=== PATIENT | male | born 1975 ===

== ENCOUNTER 2021-10-01 17:26 | Inpatient (IN) | payer MEDICAID, SELFPAY ==
[2021-10-01 17:36] VITALS: BP 141/105; PULSE 111; RESP 16; TEMP 36.9; O2SAT 96
--- NOTE | 2021-10-01 18:03 | ED.GENADUL_ITS ---
Discharge Plan Disposition Patient Disposition: STILL A PATIENT Condition: Stable Discharge Details Clinical Impression: Depression Primary Care Provider: Beatrice,Local ED Provider: Arash Gibson [place] Meds and New Rx's Prescriptions: No Action quetiapine 25 mg Tablet 25 mg PO BID PRN0RF cetirizine 10 mg Tablet 10 mg PO DAILY 0RF prazosin 1 mg Capsule 1 mg PO .QHS 0RF mirtazapine 7.5 mg Tablet 7.5 mg PO DAILY 0RF pantoprazole 40 mg Granules For Susp In Packet 40 mg PO DAILY 0RF Medical Decision Making <Nigel Underwood MD - Last Filed: 10/01/21 19:46> 46-year-old male states he was discharged from [facility] today. He states he was discharged by RCT to the economic services office in [facility] where he was told they would be able to help him find a new domicile. He states he was told they had no available options to help him today and this caused him to feel recurrent and worsening depression with thoughts of committing suicide by taking an overdose. The patient is well-appearing, medical screening examination performed. There was a note of elevated heart rate at triage, normal by the time of my exam. Medical screening including laboratory analysis performed, patient medically stable for further evaluation by crisis services. Will sign out to Dr. Gibson pending patient interview by crisis screener. Please see his note regarding final impression and disposition. Lab Data Lab results reviewed: Yes I reviewed the patient's lab results. Labs: Laboratory Results - last 24 hr 10/01/21 10/01/21 10/01/21 18:30 18:30 18:30 WBC 9.75 RBC 4.63 Hgb 14.9 Hct 44.1 MCV 95 MCH 32.2 MCHC 33.8 RDW 12.1 Plt Count 252 MPV 9.8 Immature Gran % 0.4 Neutrophils % 78.9 Lymphocytes % 14.5 Monocytes % 5.4 Eosinophils % 0.3 Basophils % 0.5 Nucleated RBC % 0.0 Absolute Neutrophils 7.69 H Absolute Lymphocytes 1.41 Absolute Monocytes 0.53 Absolute Eosinophils 0.03 Absolute Basophils 0.05 Sodium 143 Potassium 4.1 Chloride 107 Carbon Dioxide 25.8 Anion Gap 10.2 BUN 14 Creatinine 1.1 Estimated GFR/1.73 m2 >= 60.00 Glucose 95 Calcium 9.2 Total Bilirubin 0.2 AST 51 H ALT 78 H Alkaline Phosphatase 90 Total Protein 7.6 Albumin 3.6 TSH 1.13 Salicylates < 2.8 Urine Opiates Screen Urine Methadone Screen Acetaminophen < 2 Ur Barbiturates Screen Ur Tricyclics Screen Ur Amphetamines Screen U Benzodiazepines Scrn Urine Cocaine Screen Ur THC Screen 10/01/21 18:40 WBC RBC Hgb Hct MCV MCH MCHC RDW Plt Count MPV Immature Gran % Neutrophils % Lymphocytes % Monocytes % Eosinophils % Basophils % Nucleated RBC % Absolute Neutrophils Absolute Lymphocytes Absolute Monocytes Absolute Eosinophils Absolute Basophils Sodium Potassium Chloride Carbon Dioxide Anion Gap BUN Creatinine Estimated GFR/1.73 m2 Glucose Calcium Total Bilirubin AST ALT Alkaline Phosphatase Total Protein Albumin TSH Salicylates Urine Opiates Screen Negative Urine Methadone Screen Negative Acetaminophen Ur Barbiturates Screen Negative Ur Tricyclics Screen Negative Ur Amphetamines Screen Negative U Benzodiazepines Scrn Negative Urine Cocaine Screen Negative Ur THC Screen Negative HPI <Nigel Underwood MD - Last Filed: 10/01/21 19:46> General Mode of arrival: ambulatory . Date/Time Provider Initiated Documentation: 10/01/21 17:32 . Limitations to Documentation: no limitations . Information obtained by: patient . History of Present Illness 46 year old M presents to the emergency department with the chief complaint of Depression, discharged from [facility] today, described as moderate, Quality is described as constant, and is localized to the head. Patient started experiencing this week(s) and it has been constant. improves with No relieving factors improve symptom(s), No exacerbating factors reported . Patient notes denies confusion and syncope. Patient did receive the following treatments prior to arrival, none Related Data Home Medications Medication Instructions Recorded Confirmed cetirizine 10 mg tablet 10 mg PO DAILY 10/01/21 10/01/21 mirtazapine 7.5 mg tablet 7.5 mg PO DAILY 10/01/21 10/01/21 pantoprazole 40 mg granules 40 mg PO DAILY 10/01/21 10/01/21 delayed-release for susp in packet prazosin 1 mg capsule 1 mg PO .QHS 10/01/21 10/01/21 quetiapine 25 mg tablet 25 mg PO BID PRN 10/01/21 10/01/21 Allergies Allergy/AdvReac Type Severity Reaction Status Date / Time No Known Allergies Allergy Unverified 10/01/21 17:44 General Stated Complaint: PsychEval BEV: 2 Review of Systems <Nigel Underwood MD - Last Filed: 10/01/21 19:46> Narrative: Feels hopeless, poor sleep, feels depressed, thoughts of harming self by taking overdose. 8 systems reviewed and otherwise negative. PFSH <Nigel Underwood MD - Last Filed: 10/01/21 19:46> All Active Problems (Updated 10/02/21 @ 05:34 by Arash Gibson MD) Depression (Chronic) Social History Smoking/Tobacco Use Status: Never Smoking risk assessment performed?: Yes Substance use type: does not use Exam <Nigel Underwood MD - Last Filed: 10/01/21 19:46> Narrative Exam Narrative: GEN: awake, alert, oriented 3. Pleasant, well groomed, interactive. HEAD: Normocephalic, atraumatic ENT: Mucous membranes moist, oropharynx unremarkable, External ear exam unremarkable EYES: PERRL, EOMI NECK: Full ROM, no KING, no menigismus CHEST/RESP: Nontender, clear to auscultation bilateral, no wheeze/rhonchi/rales CARDIOVASCULAR: RRR, no murmur, rub gigi. 2+ Rad pulse bilateral ABDOMEN: Soft, nontender, no mass. +Bowel sounds EXT: Full ROM, no edema, no rash Neuro: Grossly normal neurologic exam, conversant, interactive. Psych: Speech fluent, thoughts congruent, affect depressed Course <Nigel Underwood MD - Last Filed: 10/01/21 19:46> Vital Signs Vital signs: Vital Signs Temperature 36.9 C 10/01/21 17:36 Pulse 111 H 10/01/21 17:36 Respiratory Rate 16 10/01/21 17:36 Blood Pressure 141/105 H 10/01/21 17:36 Pulse Oximetry 96 10/01/21 17:36 Temperature 36.9 C 10/01/21 17:36 Temperature Source Temporal Artery Scan 10/01/21 17:36 Pulse 111 H 10/01/21 17:36 Respiratory Rate 16 10/01/21 17:36 Respiratory Effort 10/01/21 17:36 Blood Pressure 141/105 H 10/01/21 17:36 Blood Pressure Position Sitting 10/01/21 17:36 Pulse Oximetry 96 10/01/21 17:36 Oxygen Delivery Method Room Air 10/01/21 17:36 Oxygen Flow Rate 0 10/01/21 17:36 Pain Level 4 10/01/21 17:36 Sign Out <Nigel Underwood MD - Last Filed: 10/01/21 19:46> Sign Out Data: Sign Out Comment: Complete med clearance, Screener. Depressed, voluntary Last updated by Nigel Underwood MD at 10/01/21 19:09
[2021-10-01 18:53] LABS: Abs Immature Grans 0.04 10^3/uL (0.0-0.06); Absolute Basophil Count 0.05 10^3/uL (0.0-0.2); Absolute Eosinophil Count 0.03 10^3/uL (0.0-0.7); Absolute Lymphocyte Count 1.41 10^3/uL (1.2-3.4); Absolute Monocyte Count 0.53 10^3/uL (0.1-0.8); Absolute Neutrophil Count 7.69 10^3/uL (1.2-6.7); Basophils % 0.5; Eosinophils % 0.3; HCT 44.1 % (40.0-50.0); HGB 14.9 g/dL (13.5-17.5); Immature Grans % 0.4; Lymphocytes % 14.5; MCH 32.2 pg (27.0-33.0); MCHC 33.8 % (32.0-36.0); MCV 95 fL (80-95); MPV 9.8 fL (8.0-11.0); Monocytes % 5.4; Neutrophils % 78.9; Platelet Count 252 10^3/uL (130-400); RBC 4.63 10^6/uL (4.36-5.78); RDW 12.1 % (11.8-14.1); RDW-SD 42.5 fL; WBC 9.75 10^3/uL (4.4-10.8)
[2021-10-01 19:11] LABS: *AMPHETAMINES SCREEN URINE Negative (Negative); *BARBITURATES SCREEN URINE Negative (Negative); *BENZODIAZEPINES SCREEN URINE Negative (Negative); Cannabinoids THC Negative (Negative); Cocaine Screen,Urine Negative (Negative); METHADONE URINE SCREEN Negative (Negative); OPIATES URINE SCREEN Negative (Negative)
[2021-10-01 19:13] LABS: Salicylate < 2.8 mg/dL (<2.8)
[2021-10-01 19:20] LABS: ALT 78 U/L (16-63); AST 51 U/L (15-37); Albumin 3.6 g/dL (3.4-5.0); Alkaline Phosphatase 90 U/L (46-116); Anion Gap 10.2 mmol/L (3-11); BUN 14 mg/dL (7-18); Bilirubin, Total 0.2 mg/dL (0.2-1.0); CO2 25.8 mmol/L (21.0-32.0); CREATININE 1.1 mg/dL (0.70-1.30); Calcium 9.2 mg/dL (8.5-10.1); Chloride 107 mmol/L (98-107); Glucose 95 mg/dL (74-106); Potassium 4.1 mmol/L (3.5-5.1); Sodium 143 mmol/L (136-145); TSH (W/Ref FT4) 1.13 uIU/mL (0.36-3.74); Total Protein 7.6 g/dL (6.4-8.2)
[2021-10-01 19:25] LABS: Tricyclic Antidepressants Negative (Negative)
[2021-10-01 19:29] LABS: Acetaminophen < 2 ug/mL (10-30)
[2021-10-01 20:04] LABS: ETHANOL BLOOD < 3.0 mg/dL (<10)
--- NOTE | 2021-10-01 22:03 | ED.PROG_ITS ---
Date of service: 10/01/21 Time of Service: 22:03 Medical Decision Making Patient received his nightly medications. He slept and had no incidents overnight. Mental health to reevaluate this morning for possible placement in care bed versus other disposition to safe environment. Lab Data Lab results reviewed: Yes I reviewed the patient's lab results. Sign Out Sign Out Data: Sign Out Comment: Complete med clearance, Screener. Depressed, voluntary Last updated by Nigel Underwood MD at 10/01/21 19:09 Discharge Plan Disposition Patient Disposition: STILL A PATIENT Condition: Stable Discharge Details Clinical Impression: Depression Primary Care Provider: Beatrice,[facility] ED Provider: Arash Gibson [place] Meds and New Rx's Prescriptions: No Action quetiapine 25 mg Tablet 25 mg PO BID PRN0RF cetirizine 10 mg Tablet 10 mg PO DAILY 0RF prazosin 1 mg Capsule 1 mg PO .QHS 0RF mirtazapine 7.5 mg Tablet 7.5 mg PO DAILY 0RF pantoprazole [address] For Susp In Packet 40 mg PO DAILY 0RF
[2021-10-01] MEDS: QUEtiapine 25 MG TAB PO (23:31)
[2021-10-01] MEDS: Prazosin 1 MG CAP (23:31)
[2021-10-02] MEDS: Pantoprazole 40 MG TABCR PO (07:19)
[2021-10-02] MEDS: Cetirizine 10 MG TAB PO (08:06)
[2021-10-02] MEDS: Mirtazapine 15 MG TAB 7.5 MG PO (08:07)
--- NOTE | 2021-10-02 09:50 | PDOC.MHCN_ITS ---
Date of service: 10/02/21 Time of Service: 09:50 Mental Health Crisis Note Presenting Issue How did you arrive at the ED and why did you come: Client arrived at ED on his own, Client reports sustaining SI with plan and intent. Client was released from [facility] yesterday. Precipitating Factors Client reports on going sustaining thoughts SI with plan to overdose on pills. Client has history of previous attempt. Disposition BEHAVIOR: Cooperative, vulgar, circumstantial. EYE CONTACT: Consistent MOOD: Client reports numb. AFFECT: Tearful APPETITE: Client reports he is eating reluctantly but is having poor appetite due to anxiety. SLEEP(trouble falling/staying asleep: Client reports ok, the magic of seroquel. Plan Client reports he did not benefit from his time at [facility]. Client reports he wants to get back on his feet, begin to work again. 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 Client reports though that he feels like a zombie, walking . It is this clinician professional opinion client is in need of Stabilization at a crisis bed to reduce SI and set him up with adequate community supports. Referral for case management and therapy through [facility] will be done. Client will wait for placement for a crisis bed at [facility] and will be reassessed daily. Signature Clinician's Name/Title: Roland Titus BA
--- NOTE | 2021-10-02 11:10 | W.EDPROG ---
Date of service: 10/02/21 Time of Service: 13:00 Medical Decision Making patient seen by mental health and they are going to seek care bed placement, he is currently calm and cooperative, no other new complaints. Will remain in the ED until care bed foud Sign Out Sign Out Data: Sign Out Comment: Complete med clearance, Screener. Depressed, voluntary Last updated by Nigel Underwood MD at 10/01/21 19:09 Sign Out Comment: pending mental health re-eval Last updated by Arash Gibson MD at 10/02/21 07:43 Sign Out Comment: recently released from [facility] with depression and mental health trying to find care bed Last updated by Jose Roberto Horta MD at 10/02/21 12:58 Discharge Plan Disposition Patient Disposition: STILL A PATIENT Condition: Stable Discharge Details Clinical Impression: Depression Primary Care Provider: Beatrice,[facility] ED Provider: Jose Roberto Horta Home Meds and New Rx's Prescriptions: No Action quetiapine 25 mg Tablet 25 mg PO BID PRN0RF cetirizine 10 mg Tablet 10 mg PO DAILY 0RF prazosin 1 mg Capsule 1 mg PO .QHS 0RF mirtazapine 7.5 mg Tablet 7.5 mg PO DAILY 0RF pantoprazole [address] For Susp In Packet 40 mg PO DAILY 0RF
[2021-10-02 12:12] VITALS: BP 141/89; PULSE 83; RESP 16; O2SAT 97
--- NOTE | 2021-10-02 12:32 | CMSP_ITS ---
- If Service Date Differs Date of service: 10/02/21 Time of Service: 12:32 Care Management Safety Plan Status: Voluntary - Reason for Wait Reason for Wait: Community Placement (Care Bed) VOLUNTARY FOR INPATIENT PSYCHIATRIC STABILIZATION. Patient is appropriate in all interactions since arriving at [facility]; Pt has demonstrated appropriate coping and communication skills, has articulated his or her needs and concerns and is fully engaged during staff interactions. Safety plan has been established with patient, and care team, to adhere to patient goals, identify restrictions based on behavioral status, address nutrition, and determine allowed personal belongings, tools for hygiene and personal care. Determine level of activity including ambulation, level of supervision, visitors, and determine privileges based on behaviors and level of engagement by pt. SAFETY PLAN: 1. Will remain on suicide precautions. In Paper Clothes 2. Will remain in room under direct supervision of one-on-one staff at all times provided by CPSO, TRANSITIONAL STUDIES INSTRUCTOR, ROD CUP FILLER roll line operator. 3. May have paper cups, plates, finger foods as well as a cardboard spoon with which to eat meals. 4. Follow [facility] Management of the Admitted Behavioral Health Patient policy. 5. Comfort bath system only. 6. No personal belongings. 7. Visitors-none at this time. 8. Activities: soft cart items, music tablet, television, and other activities at RN discretion. 9. Bathroom privileges with escort in the ED, available in room without limitation on M/S. 10. Phone: May use Badge phone at RN discretion. 11. Due to VOLUNTARY status, if patient wishes to leave [facility], staff will contact [facility] Crisis Screener ([phone]) and On-Call Box Sealing Inspector ([phone]) as soon as possible. In the event of elopement, notify [facility] Police ([phone]). Patient is currently voluntarily at [facility] and seeking inpatient admission when a bed becomes available. [facility] Frontline Clinical Nutritionist will continue seeking placement. Please contact the Skilled Nursing Case Manager Box Sealing Inspector ([phone]) and [facility] Clinical Nutritionist ([phone]) for any needed changes in the Safety Plan. Safety plan has been provided to interdepartmental care team.
--- NOTE | 2021-10-02 16:31 | PDOC.ERCMPRO ---
- If Service Date Differs Date of service: 10/02/21 Time of Service: 16:31 Care Management Progress Note S/O: Johnathan is lying in bed when CM comes to meet with him. He is pleasant and easily engages in conversation. He shares his belief that he has sleep apnea and says he is tired all the time as the apnea is untreated. He tells CM he has been depressed since he from his several months ago. He states he was staying with family but did not get along well with them, so he is currently homeless. He reportedly had a vehicle, which he was living out of, and was working odd jobs but he recently lost his vehicle, making it impossible for him to continue working. Johnathan says he feels depressed, hopeless and is ready to give up. A: Johnathan is a 46 year old male who presents at [facility] for suicidal ideation. P: Johnathan was evaluated by Roland [facility] Crisis Screener, and a referral was made to the [facility] Care Bed. This afternoon, Roland advises the Care Bed is unable to accept Johnathan this week as they are only open Thursday through Thursday and it is already mid-week, which would not allow enough time to work with Johnathan before he would need to be discharged on Thursday. Roland is now faxing referrals to other crisis beds for review. CM will continue to follow. - Status Status: Voluntary - Reason for Wait Reason for Wait: Community Placement
--- NOTE | 2021-10-02 20:52 | W.PM.HP.N ---
Assessment and Plan Assessment and plan (1) Depression: Status: Chronic Assessment and plan: He has been observed in the emergency department for the last 25 hours. He still suicidal. No bed placement has been arranged For psychiatric admission. That is ongoing. He will be continued on his current medicines. History of Present Illness History of Present Illness Chief Complaint: depression, hopelessness, suicidal ideation Narrative: This 46-year-old male is here forAdmission for depression. He was admitted to the emergency department yesterday after spending 2 weeks at [facility]. He is not from [place] but moved up here with his sister for a while but he said they were not getting along. He took an overdose of Benadryl tablets but woke up later after he thought that he had taken up to kill himself. He says he has been for 4 years but his 's been cheating on him for the last 2 years. He says he wants to get a divorce. He came up here from the [facility] yesterday but something fell through in terms of his follow-up housing arrangements and he became quite distraught and suicidal. He says that he thinks God is ready to have him come home. His business center manager texted him and he told her how he was feeling and came to the hospital emergency department. He still thinks about taking an overdose. He sees no reason to keep him living. He was working as a grocery cashier and bail attacher. He is not working currently. He is quite hopeless and sees no reason to keep on living. He has his 1 sister but he says it currently because of their arguing he considers that she is . His parents have and he has no children. He was drinking fairly heavily recently up to 6 or 7 beers per day. He does not use tobacco. He has not been immunized for coronavirus and says he has caught COVID twice now. He was discharged on as needed quetiapine and a prescription for mirtazapine daily, Pantoprazole prazosin and cetirizine. He has no allergies. He says he has a history of hypertension and has a history of cholecystectomy when he was 9 years old. Review of Systems Constitutional Constitutional: Denies chills, Denies fever(s), Denies headache(s), Reports lethargy and Reports malaise ENT Ears, Nose, Mouth, and Throat: Denies dysphagia and Denies headache(s) Cardiovascular Cardiovascular: Denies chest pain, Denies rapid heart rate, Denies claudication and Denies dyspnea Respiratory Respiratory: Denies cough and Denies dyspnea Gastrointestinal Gastrointestinal: Denies abdominal pain, Denies dysphagia, Denies diarrhea, Denies loose stools, Denies nausea and Denies vomiting Genitourinary Genitourinary: Reports difficulty urinating Neurologic Neurologic: Denies headache(s) Psychiatric Psychiatric: Reports depression, Reports hopelessness, Denies homicidal ideation and Reports suicidal ideation PFS All Active Problems (Updated 10/02/21 @ 05:34 by Arash Gibson MD) Depression (Chronic) Social History Smoking/Tobacco Use Status: Never Smoking risk assessment performed?: Yes Substance use type: does not use Meds Allergies and Home Medications Allergies Allergy/AdvReac Type Severity Reaction Status Date / Time No Known Allergies Allergy Unverified 10/01/21 17:44 Home Medications Medication Instructions Recorded Confirmed Type cetirizine 10 mg tablet 10 mg PO DAILY 10/01/21 10/01/21 History mirtazapine 7.5 mg tablet 7.5 mg PO DAILY 10/01/21 10/01/21 History pantoprazole 40 mg granules 40 mg PO DAILY 10/01/21 10/01/21 History delayed-release for susp in packet prazosin 1 mg capsule 1 mg PO .QHS 10/01/21 10/01/21 History quetiapine 25 mg tablet 25 mg PO BID PRN 10/01/21 10/01/21 History Exam Const General: cooperative, comfortable, no acute distress, well groomed and not ill appearing Nutritional Appearance: obese Orientation: alert, awake and oriented x3 HENMT Head: normal to inspection and normocephalic Eyes General: appearance normal, both eyes and all related structures Neck Neck: normal visual inspection, no lymphadenopathy, no meningeal signs and no JVD Thyroid: thyroid normal Resp Effort & Inspection: normal respiratory effort Auscultation: clear to auscultation bilaterally Cardio Rate: regular rate Rhythm: regular rhythm GI Inspection: normal to inspection Palpation: soft, no hepatosplenomegaly, not firm and nontender Other: RUQ scar Neuro General: no focal motor deficits Extrem General: normal to inspection, no clubbing, no cyanosis and no edema Psych Appearance: well kempt Speech and Movement: speech and movement normal and not agitated Affect: dysphoric affect Thought Process: illogical Thought Content: normal Insight: poor Judgment: limited Results Labs Result diagrams: 10/01/21 18:30 10/01/21 18:30 Last Vital Signs Temp 36.9 C 10/01/21 17:36 Pulse 83 10/02/21 12:12 Resp 16 10/02/21 12:12 BP 141/89 H 10/02/21 12:12 Pulse Ox 97 10/02/21 12:12
[2021-10-02 21:14] LABS: Source Nasal/Nares
[2021-10-02 22:00] VITALS: BP 145/102; PULSE 92; RESP 16; TEMP 37.4; O2SAT 97
[2021-10-02 22:07] LABS: COVID-19 PCR Negative (Negative)
[2021-10-02 23:54] VITALS: BP 148/94; PULSE 79; RESP 16; TEMP 37.1; O2SAT 97
[2021-10-03] MEDS: Prazosin 1 MG CAP PO (00:03)
[2021-10-03] MEDS: Mirtazapine 15 MG TAB 7.5 MG PO (00:03)
[2021-10-03] MEDS: QUEtiapine 25 MG TAB PO (03:16)
--- NOTE | 2021-10-03 08:49 | CMSP_ITS ---
- If Service Date Differs Date of service: 10/03/21 Time of Service: 08:49 Care Management Safety Plan Status: Voluntary - Reason for Wait Reason for Wait: Inpatient Admission VOLUNTARY FOR INPATIENT PSYCHIATRIC STABILIZATION. Patient is appropriate in all interactions since arriving at [facility]; Pt has demonstrated appropriate coping and communication skills, has articulated his or her needs and concerns and is fully engaged during staff interactions. Safety plan has been established with patient, and care team, to adhere to patient goals, identify restrictions based on behavioral status, address nutrition, and determine allowed personal belongings, tools for hygiene and personal care. Determine level of activity including ambulation, level of supervision, visitors, and determine privileges based on behaviors and level of engagement by pt. FRANCISCO Francisco at [facility] reports Johnathan continues to meet criteria to remain hospitalized at [facility], she reports referrals have been sent to all accepting hospitals and care beds at this time; awaiting determinations. SAFETY PLAN: 1. Will remain on suicide precautions. In Paper Clothes 2. Will remain in room under direct supervision of one-on-one staff at all times provided by CPSO, ANITRA, PUBLIC INFORMATION SPECIALIST chemical applicator. 3. May have paper cups, plates, finger foods as well as a cardboard spoon with which to eat meals. 4. Follow [facility] Management of the Admitted Behavioral Health Patient policy. 5. Comfort bath system, shower permitted with escort at RN discretion. 6. Personal Belongings: cell phone and soft items permitted at RN discretion. 7. Visitors-per [facility] policy at RN discretion. 8. Activities: soft cart items, music tablet, television, and other activities at RN discretion. 9. Bathroom privileges with escort in the ED, available in room without limitation on M/S. 10. Phone: May use [employer] phone at RN discretion. 11. Due to VOLUNTARY status, if patient wishes to leave [facility], staff will contact [facility] Crisis Screener ([phone]) and On-Call Hand Ii Tube Bender ([phone]) as soon as possible. In the event of elopement, notify [place] [employer] Police ([phone]). Patient is currently voluntarily at [facility] and seeking inpatient admission when a bed becomes available. [facility] Frontline Commercial Loan Underwriter will continue seeking placement. Please contact the Embedded Firmware Engineer Hand Ii Tube Bender ([phone]) and [facility] Commercial Loan Underwriter ([phone]) for any needed changes in the Safety Plan. Safety plan has been provided to interdepartmental care team.
--- NOTE | 2021-10-03 08:49 | PDOC.CMSAFE ---
- If Service Date Differs Date of service: 10/03/21 Time of Service: 08:49 Care Management Safety Plan Status: Voluntary - Reason for Wait Reason for Wait: Inpatient Admission VOLUNTARY FOR INPATIENT PSYCHIATRIC STABILIZATION. Patient is appropriate in all interactions since arriving at [facility]; Pt has demonstrated appropriate coping and communication skills, has articulated his or her needs and concerns and is fully engaged during staff interactions. Safety plan has been established with patient, and care team, to adhere to patient goals, identify restrictions based on behavioral status, address nutrition, and determine allowed personal belongings, tools for hygiene and personal care. Determine level of activity including ambulation, level of supervision, visitors, and determine privileges based on behaviors and level of engagement by pt. FRANCISCO Francisco at [facility] reports Johnathan continues to meet criteria to remain hospitalized at [facility], she reports referrals have been sent to all accepting hospitals and care beds at this time; awaiting determinations. SAFETY PLAN: 1. Will remain on suicide precautions. In Paper Clothes 2. Will remain in room under direct supervision of one-on-one staff at all times provided by [employer], [employer]ITRA, LEATH[employer]KER quarter supervisor. 3. May have paper cups, plates, finger foods as well as a cardboard spoon with which to eat meals. 4. Follow [facility] Management of the Admitted Behavioral Health Patient policy. 5. Comfort bath system, shower permitted with escort at RN discretion. 6. Personal Belongings: cell phone and soft items permitted at RN discretion. 7. Visitors-per [facility] policy at RN discretion. 8. Activities: soft cart items, music tablet, television, and other activities at RN discretion. 9. Bathroom privileges with escort in the ED, available in room without limitation on M/S. 10. Phone: May use [employer] phone at RN discretion. 11. Due to VOLUNTARY status, if patient wishes to leave [facility], staff will contact [facility] Crisis Screener ([phone]) and On-Call Wood Milling Machine Tender ([phone]) as soon as possible. In the event of elopement, notify [place] [employer] Police ([phone]). Patient is currently voluntarily at [facility] and seeking inpatient admission when a bed becomes available. [facility] Frontline Glass Vial Filler will continue seeking placement. Please contact the Water Analyst Wood Milling Machine Tender ([phone]) and [facility] Glass Vial Filler ([phone]) for any needed changes in the Safety Plan. Safety plan has been provided to interdepartmental care team.
[2021-10-03 10:49] VITALS: BP 138/95; PULSE 92; TEMP 36.8; O2SAT 97
--- NOTE | 2021-10-03 13:25 | W.PM.PROGNOT ---
Date of Service Date of service: 10/03/21 Time of Service: 12:25 Assessment and Plan Assessment and plan (1) Depression: Status: Chronic Assessment and plan: He still suicidal. [facility]. We are continuing his current medicines. Subjective Subjective Patient reports: no new complaints Exam Narrative Exam Narrative: GEN: awake, alert, oriented 3. Pleasant, well groomed, interactive. HEAD: Normocephalic, atraumatic ENT: Mucous membranes moist, oropharynx unremarkable, External ear exam unremarkable EYES: PERRL, EOMI NECK: Full ROM, no KING, no menigismus CHEST/RESP: Nontender, clear to auscultation bilateral, no wheeze/rhonchi/rales CARDIOVASCULAR: RRR, no murmur, rub gigi. 2+ Rad pulse bilateral ABDOMEN: Soft, nontender, no mass. +Bowel sounds EXT: Full ROM, no edema, no rash Neuro: Grossly normal neurologic exam, conversant, interactive. Psych: Speech fluent, thoughts congruent, affect depressed Const General: cooperative, comfortable, no acute distress, well groomed and not ill appearing Nutritional Appearance: average body habitus and obese Orientation: alert, awake and oriented x3 HENMT Head: normal to inspection and normocephalic Eyes General: appearance normal, both eyes and all related structures Neck Neck: normal visual inspection, no lymphadenopathy, no meningeal signs and no JVD Thyroid: thyroid normal Resp Effort & Inspection: normal respiratory effort Auscultation: clear to auscultation bilaterally Cardio Rate: regular rate Rhythm: regular rhythm GI Inspection: normal to inspection Palpation: soft, no hepatosplenomegaly, not firm and nontender Other: RUQ scar Neuro General: no focal motor deficits Extrem General: normal to inspection, no clubbing, no cyanosis and no edema Psych Appearance: well kempt Speech and Movement: speech and movement normal and not agitated Affect: dysphoric affect Thought Process: illogical Thought Content: normal Insight: poor Judgment: limited Objective Last Vital Signs Temp 36.8 C 10/03/21 10:49 Pulse 92 H 10/03/21 10:49 Resp 16 10/02/21 23:54 BP 138/95 H 10/03/21 10:49 Pulse Ox 97 10/03/21 10:49 Laboratory Results - last 24 hr 10/02/21 21:10 COVID-19 Source Nasal/Nares SARS-CoV-2 (PCR) Negative Reviewed Pertinent PMH: Yes
--- NOTE | 2021-10-03 14:37 | W.PM.DS.N ---
Date of service: 10/03/21 Time of Service: 13:37 DS: Diagnosis Discharge Diagnosis (1) Depression: Start date: 10/03/21 Start time: 13:38 Status: Chronic Discharge Plan Disposition Patient Disposition: [facility] Condition: Stable Discharge Details Reason For Visit: Depression,Suicidal ideation Admit Date/Time: 10/02/21 20:48 Admit Provider: Momo Caballero Attending Provider: Momo Caballero Primary Care Provider: Beatrice,Local Hospital Course Hospital Course: 46 year old? M presented to our emergency department last hari with the chief complaint of Depression. He was discharged from [facility] yesterday. He describes his depression as moderate,?Quality is described as constant.? No relieving factors or improvement of symptom(s),?No exacerbating factors reported .?Patient denies confusion and syncope.? Patient spent the night on observation in the inpatient unit. Discussion with accepting provider @ [facility]; will tsfr via EMS. Patient is in agreement. Home Meds and New Rx's Prescriptions: Continued quetiapine 25 mg Tablet 25 mg PO BID PRN cetirizine 10 mg Tablet 10 mg PO DAILY prazosin 1 mg Capsule 1 mg PO .QHS mirtazapine 7.5 mg Tablet 7.5 mg PO DAILY pantoprazole [address] For Susp In Packet 40 mg PO DAILY Discharge Instructions Instructions: Depression (DC) Activity:: Activity as Tolerated Diet:: As Tolerated DS: Summary Time Spent with Patient providing and/or coordinating discharge services: Less than 30 minutes Status at Discharge Functional status at discharge: independent ambulation Overall status at discharge: patient is not back to baseline Mental Status: mental status grossly normal Speech and Movement: speech and movement normal and No agitated Mood: congruent mood Affect: dysphoric affect Exam Narrative Exam Narrative: GEN: awake, alert, oriented 3. Pleasant, well groomed, interactive. HEAD: Normocephalic, atraumatic ENT: Mucous membranes moist, oropharynx unremarkable, External ear exam unremarkable EYES: PERRL, EOMI NECK: Full ROM, no KING, no menigismus CHEST/RESP: Nontender, clear to auscultation bilateral, no wheeze/rhonchi/rales CARDIOVASCULAR: RRR, no murmur, rub gigi. 2+ Rad pulse bilateral ABDOMEN: Soft, nontender, no mass. +Bowel sounds EXT: Full ROM, no edema, no rash Neuro: Grossly normal neurologic exam, conversant, interactive. Psych: Speech fluent, thoughts congruent, affect depressed Const General: cooperative, comfortable, no acute distress, well groomed and not ill appearing Nutritional Appearance: average body habitus and obese Orientation: alert, awake and oriented x3 HENMT Head: normal to inspection and normocephalic Eyes General: appearance normal, both eyes and all related structures Neck Neck: normal visual inspection, no lymphadenopathy, no meningeal signs and no JVD Thyroid: thyroid normal Resp Effort & Inspection: normal respiratory effort Auscultation: clear to auscultation bilaterally Cardio Rate: regular rate Rhythm: regular rhythm GI Inspection: normal to inspection Palpation: soft, no hepatosplenomegaly, not firm and nontender Neuro General: no focal motor deficits Extrem General: normal to inspection, no clubbing, no cyanosis and no edema Psych Appearance: well kempt Mental Status: mental status grossly normal Speech and Movement: speech and movement normal and not agitated Mood: congruent mood Affect: dysphoric affect Thought Process: illogical Thought Content: normal Insight: poor Judgment: limited DS: Data Vitals/I&O Vitals and I&O: Vital Signs Temperature 36.8 C 10/03/21 10:49 Temperature Source Tympanic 10/03/21 10:49 Pulse 92 H 10/03/21 10:49 Pulse Rhythm Regular 10/03/21 10:46 Respiratory Rate 16 10/02/21 23:54 Respiratory Effort Non-Labored 10/03/21 10:46 Respiratory Depth Normal 10/03/21 10:46 Respiratory Pattern Normal 10/03/21 10:46 Blood Pressure 138/95 H 10/03/21 10:49 Blood Pressure Position Sitting 10/01/21 17:36 Pulse Oximetry 97 10/03/21 10:49 Oxygen Delivery Method Room Air 10/03/21 10:49 Oxygen Flow Rate 0 10/03/21 10:49 Pain Level 0 10/02/21 23:54 Intake & Output 10/02/21 10/03/21 10/03/21 23:59 11:59 23:59 Intake Total 500 / 500 Balance 500 / 500 Weight 99.5 kg Intake: Oral 500 / 500 Other: Urine Appearance Clear Clear Comment Pt flushed toilet by himself Voiding Methods Toilet Toilet Data Completed and Pending Labs on day of discharge: Labs from last 24 hours 10/02/21 21:10 COVID-19 Source Nasal/Nares SARS-CoV-2 (PCR) Negative PFSH All Active Problems Depression (Chronic) Social History Smoking/Tobacco Use Status: Never Smoking risk assessment performed?: Yes Substance use type: does not use
--- NOTE | 2021-10-03 14:51 | W.PM.DS.N ---
DS: Diagnosis Discharge Diagnosis (1) Depression: Status: Chronic Discharge Plan Disposition Patient Disposition: [facility] Condition: Stable Discharge Details Reason For Visit: Depression,Suicidal ideation Admit Date/Time: 10/02/21 20:48 Admit Provider: Momo Caballero Attending Provider: Momo Caballero Primary Care Provider: Beatrice,Local Hospital Course Hospital Course: 46 year old? M presented to our emergency department last hari with the chief complaint of Depression. He was discharged from [facility] yesterday. He describes his depression as moderate,?Quality is described as constant.? No relieving factors or improvement of symptom(s),?No exacerbating factors reported .?Patient denies confusion and syncope.? Patient spent the night on observation in the inpatient unit. Discussion with accepting provider @ [facility]; will tsfr via EMS. Patient is in agreement. Home Meds and New Rx's Prescriptions: Continued quetiapine 25 mg Tablet 25 mg PO BID PRN cetirizine 10 mg Tablet 10 mg PO DAILY prazosin 1 mg Capsule 1 mg PO .QHS mirtazapine 7.5 mg Tablet 7.5 mg PO DAILY pantoprazole [address] For Susp In Packet 40 mg PO DAILY Discharge Instructions Instructions: Depression (DC) Stand Alone Forms: Nursing Discharge Form Activity:: Activity as Tolerated Diet:: As Tolerated DS: Summary Time Spent with Patient providing and/or coordinating discharge services: Less than 30 minutes Status at Discharge Functional status at discharge: independent ambulation Overall status at discharge: patient is not back to baseline Mental Status: mental status grossly normal (agitated) Speech and Movement: agitated Mood: anxious mood Affect: labile affect Exam Psych Mental Status: mental status grossly normal (agitated) Speech and Movement: agitated Mood: anxious mood Affect: labile affect DS: Data Vitals/I&O Vitals and I&O: Vital Signs Temperature 36.8 C 10/03/21 10:49 Temperature Source Tympanic 10/03/21 10:49 Pulse 92 H 10/03/21 10:49 Pulse Rhythm Regular 10/03/21 10:46 Respiratory Rate 16 10/02/21 23:54 Respiratory Effort Non-Labored 10/03/21 10:46 Respiratory Depth Normal 10/03/21 10:46 Respiratory Pattern Normal 10/03/21 10:46 Blood Pressure 138/95 H 10/03/21 10:49 Blood Pressure Position Sitting 10/01/21 17:36 Pulse Oximetry 97 10/03/21 10:49 Oxygen Delivery Method Room Air 10/03/21 10:49 Oxygen Flow Rate 0 10/03/21 10:49 Pain Level 0 10/02/21 23:54 Intake & Output 10/02/21 10/03/21 10/03/21 23:59 11:59 23:59 Intake Total 500 / 500 Balance 500 / 500 Weight 99.5 kg Intake: Oral 500 / 500 Other: Urine Appearance Clear Clear Comment Pt flushed toilet by himself Voiding Methods Toilet Toilet Data Completed and Pending Labs on day of discharge: Labs from last 24 hours 10/02/21 21:10 COVID-19 Source Nasal/Nares SARS-CoV-2 (PCR) Negative PFSH All Active Problems Depression (Chronic) Social History Smoking/Tobacco Use Status: Never Smoking risk assessment performed?: Yes Substance use type: does not use
== END 2021-10-03 16:54 | disposition short-term general hospital (02) | DRG 881 ==
LOC: ER 10-02 18:48 → MS 10-02 21:34
PROVIDERS: Admitting Provider Family Medicine; Emergency Provider Emergency Medicine; Visit Provider Family Medicine
DX: F32.A Depression, unspecified (principal); R45.851 Suicidal ideations
CPT/HCPCS: 36415; 80053; 80307; 87635; 99284; 99285; 80320; 80329; 84443; 85025; 99222; 99238